=== PATIENT | female | born 1975 | race Caucasian/White ===

== ENCOUNTER 2019-03-05 20:58 | Emergency (ER) | payer MEDICARE ==
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
[2019-03-05] MEDS ORDERED: OLAN20TA18 PO (21:17)
[2019-03-05] MEDS ORDERED: TOPI200T82 PO (21:17)
[2019-03-05] MEDS ORDERED: SERT-173 PO (21:17)
[2019-03-05] MEDS ORDERED: RIVA20TA PO (21:17)
[2019-03-05] MEDS ORDERED: BUSP15TA69 PO (21:17)
[2019-03-05] MEDS ORDERED: TRAZ100T31 PO (21:17)
[2019-03-05] MEDS ORDERED: GABA-549 PO (21:17)
[2019-03-05] MEDS ORDERED: LITH300T18 PO (21:17)
[2019-03-05] MEDS ORDERED: GABAPENTIN 100 MG CAP PO ONE (21:40)
[2019-03-05] MEDS ORDERED: LITHIUM CARBONATE 300 MG CAP PO ONE (21:40)
[2019-03-05] MEDS ORDERED: busPIRone HCL 5 MG TAB PO ONE (21:45)
[2019-03-05] MEDS ORDERED: traZODone HCL 50 MG TAB ONE (21:59)
[2019-03-05] MEDS ORDERED: OLANZapine 5 MG TAB ONE (22:00)
[2019-03-05 22:07] LABS: PLATELET COUNT, AUTOMATED 207 K/uL (150-450)
[2019-03-05 22:30] VITALS: BP 155/70
[2019-03-05] MEDS ORDERED: LOPERAMIDE HCL 2 MG CAP PO PRN (22:55)
[2019-03-06] MEDS ORDERED: OLANZapine 5 MG TAB PO SCH (21:00)
[2019-03-06] MEDS ORDERED: traZODone HCL 50 MG TAB PO SCH (21:00)
== END 2019-03-05 23:20 ==
LOC: ER 21:25
DX: R45.851 Suicidal ideations (principal)
CPT/HCPCS: 36415; 80178; 80305; 81001; 81025; 83735; 84443; 85025; 99284; A9270; G0480; 80320; 80329; 82040; 82247; 82310; 82374; 82435; 82565; 82947; 84075; 84132; 84155; 84295; 84450; 84460; 84520

== ENCOUNTER 2019-03-05 22:48 | Inpatient (IN) | payer MEDICARE ==
[~2019-03-05] VITALS: Ht 172.7 cm; Wt 108.9 kg
[~2019-03-05 22:48] MED LIST: BUSP15TA69 PO; GABA-549 PO; LITH300T18 PO; OLAN20TA18 PO; RIVA20TA PO; SERT-173 PO; TOPI200T82 PO; TRAZ100T31 PO
[2019-03-05] MEDS ORDERED: LOPERAMIDE HCL 2 MG CAP PO PRN (23:20)
[2019-03-05] MEDS ORDERED: MAG HYD/AL HYD/SIMETH 30ML UDC PO PRN (23:20)
[2019-03-06 01:20] VITALS: BP 137/87
[2019-03-06] MEDS: MULTIVITAMINS TAB PO SCH (08:08)
[2019-03-06] MEDS ORDERED: traZODone HCL 50 MG TAB PO PRN (11:45)
[2019-03-06] MEDS: SERTRALINE HCL 50 MG TAB PO SCH (12:09)
[2019-03-06] MEDS: TOPIRAMATE 25 MG TAB PO SCH (12:10)
[2019-03-06] MEDS: LITHIUM CARBONATE 300 MG CAP PO SCH ×2 (14:01→21:36)
[2019-03-06] MEDS: GABAPENTIN 100 MG CAP PO SCH ×2 (14:01→21:36)
[2019-03-06] MEDS: busPIRone HCL 5 MG TAB PO SCH ×2 (14:01→21:36)
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
[2019-03-06] MEDS ORDERED: LORazepam 1 MG TAB PO ONE (18:30)
[2019-03-06] MEDS ORDERED: OLANZapine 5 MG TAB PO SCH (21:00)
[2019-03-06] MEDS: ACETAMINOPHEN 325 MG TAB PO PRN (21:36)
[2019-03-07 05:57] VITALS: BP 119/95
[2019-03-07] MEDS: busPIRone HCL 5 MG TAB PO SCH ×2 (08:16→14:17)
[2019-03-07] MEDS: GABAPENTIN 100 MG CAP PO SCH ×2 (08:16→14:17)
[2019-03-07] MEDS: LITHIUM CARBONATE 300 MG CAP PO SCH ×2 (08:16→14:17)
[2019-03-07] MEDS: SERTRALINE HCL 50 MG TAB PO SCH (08:17)
[2019-03-07] MEDS: MULTIVITAMINS TAB PO SCH (08:17)
[2019-03-07] MEDS: TOPIRAMATE 25 MG TAB PO SCH (08:17)
[2019-03-07] MEDS ORDERED: RIVAROXABAN 10 MG TAB PO SCH (12:00)
[2019-03-07] MEDS: ACETAMINOPHEN 325 MG TAB PO PRN (12:10)
[2019-03-07] MEDS ORDERED: MULT-1379 PO (13:30)
[2019-03-07] MEDS ORDERED: TOPI50TA92 PO (13:30)
[2019-03-07] MEDS ORDERED: OLAN10TA21 PO (13:32)
[2019-03-07] MEDS ORDERED: OLAN20TA6 PO (13:36)
[2019-03-07] MEDS ORDERED: SERT-181 PO (13:40)
--- NOTE | 2019-03-08 21:38 | SCHAAF DISCHARGE ---
DATE OF ADMISSION: March 05, 2019 DATE OF DISCHARGE: March 07, 2019 ATTENDING PHYSICIAN Barron Thomas MD Patient was seen approximately 1000 hours on the a.m. of 07 March 2019 for note concerning this dictation. FINAL DIAGNOSES 1. Borderline personality disorder. 2. Bipolar II disorder, recent depressed. 3. History of posttraumatic stress disorder. 4. Limited stress-coping mechanism. 5. Supportive relationship overall with her mother. REASON FOR ADMISSION This is a 43-year-old female who moved to [facility] with her mother in the last few weeks here to [place], [place], to set up permanent residence. Please see H and P for full details. Patient being overwhelmed with the move in general, financial stressors, and getting things in order as far medication management in [facility]. Patient is noted prior to admission to have been setting up treatment at [facility], but was unable to get in to see a provider. Brief suicidal ideation ensued, patient not having any intention. She has had a long history of hospitalizations associated with what is presumably mostly due to borderline personality disorder. Patient will be in need of therapists as well. Medications were largely continued on the unit with the exception of Zyprexa, which was lowered somewhat at the patient's request. Topamax was restarted at a low dose at 50 mg q.a.m. This could offset some of the weight gain from Zyprexa and also lead to a more effective mood stability agent in the exterminator termite for this patient with borderline personality disorder. Patient overall making no parasuicidal gestures or behaviors on the unit, interacting well throughout her stay. Patient having some brief suicidal thoughts, even at time of discharge. However, patient had contracted for safety and will return to the ER or call crisis line and will set up effective outpatient management to limit hospital frequencies of admission. PHYSICAL EXAMINATION Please see emergency room note. Notable for heavyset 43-year-old female. Appears stated age. Vital signs at the time of admission: Temperature 99.1, pulse 73, respiratory rate 18, blood pressure 149/76, pulse oximetry 95% on room air. At the time of discharge from [facility], vital signs showed temperature 98.6, pulse 76, respiratory rate 15, blood pressure 119/95, pulse oximetry 95% on room air. LABORATORY DATA Upon admission, CBC was unremarkable. CMP unremarkable as well. TSH did show mild elevation of 5.38. This could be related to lithium use; however, will require further investigation outpatient status. Urinalysis unremarkable. screen negative. Toxicology screen negative. Notably, lithium level at 0.9. MENTAL STATUS EXAMINATION AT TIME OF DISCHARGE GENERAL APPEARANCE, BEHAVIOR, AND ATTITUDE: This is a polite, cooperative, 43-year-old female. Some psychomotor retardation present. Patient making good eye contact. No periods of tearfulness. SPEECH: Largely within normal limits. Regular rate, rhythm, volume, and tone. MOOD: Described as improved. AFFECT: Full briefly at times and mood congruent. THOUGHT PROCESSES: Goal directed, logical, patient deciding she should exit the hospital. No loose associations or flight of ideas. THOUGHT CONTENT: Free of auditory or visual hallucinations, ideas of reference, thought broadcasting, delusions, obsessions, compulsions, and patient denying any suicidal intent and adamantly denying homicidal ideation. SENSORIUM: Clear. COGNITION: Alert and oriented to person, place, time, and situation. MEMORY: Immediate, recent, and remote estimated intact. INTELLIGENCE: Average based on interview. INSIGHT AND JUDGMENT: Limited stress coping mechanisms are present; however, patient has the support of her mother in the outpatient community after recent move to [place]. RESULTS OF TESTING Imaging: None. Laboratory data: See above. CONSULTATIONS None. TREATMENT Patient received medications, participated in individual and group therapy. HOSPITAL COURSE Patient was polite and cooperative throughout her stay, indicated a desire to get back into DBT therapy as well as set up proper medication management and therapy management in general in the [facility]. Patient showing no parasuicidal behaviors while on the unit. Medications were continued. Zyprexa dose was lowered due to history of weight gain and lethargy. CONDITION OF PATIENT ON DISCHARGE Stable. Considered a minimal risk to herself or others, appropriate for outpatient care. DISPOSITION Patient discharged to home in the care of her mother. She would follow up with [facility] for DBT therapy as well as medication management. It appears that the patient's primary diagnosis would be borderline personality disorder, and she remains on a considerable amount of varying psychotropic medications. Close observation on an outpatient basis. It would be recommended that patient see if she can decrease some of these medications overall. DISCHARGE MEDICATIONS 1. Buspirone 15 mg three times a day. 2. Gabapentin 100 mg three times a day. 3. [place] carbonate 300 mg three times a day. 4. Zyprexa 10 mg at bedtime. 5. Xarelto 20 mg daily. 6. Zoloft 200 mg q.a.m. 7. Topamax 50 mg q.a.m. 8. Trazodone 200 mg at bedtime. PLAN Crisis line was given should symptoms return. Risks, benefits, and alternatives of the above discharge plan were discussed. Informed consent was given to proceed with the above discharge plan by this competent patient and patient's mother present at time of discharge. ZHAO
== END 2019-03-07 16:20 | disposition home or self-care (01) | DRG 882 ==
LOC: BHS 22:48
PROVIDERS: ADMIT Psychiatry & Neurology Psychiatry; ATTEND Psychiatry & Neurology Psychiatry
DX: F43.23 Adjustment disorder with mixed anxiety and depressed mood (principal); G40.909 Epilepsy, unspecified, not intractable, without status epilepticus; F43.10 Post-traumatic stress disorder, unspecified; F60.3 Borderline personality disorder; F41.9 Anxiety disorder, unspecified; M79.7 Fibromyalgia; M19.90 Unspecified osteoarthritis, unspecified site; F31.81 Bipolar II disorder; Z79.899 Other long term (current) drug therapy

== ENCOUNTER → 2019-03-27 | Outpatient (CLI) | payer MEDICARE ==
[~2019-03-27] MED LIST changes: +MULT-1379 PO; +OLAN10TA21 PO; +OLAN20TA6 PO; +SERT-181 PO; +TOPI50TA92 PO
[2019-03-27 14:37] LABS: PLATELET COUNT, AUTOMATED 259 K/uL (150-450)
--- NOTE | 2019-03-27 14:46 | RADIOLOGY IMAGING REPORT ---
FACILITY: [facility] PATIENT NAME: Leann Acosta : 1975 MR: [id number] V: [id number] EXAM DATE: ORDERING PHYSICIAN: CHYNA CAZARES TECHNOLOGIST: Location: [facility] Patient: Leann Acosta : 1975 Visit/Account:[id number] Date of Sevice: 03/27/2019 Exam: SACRUM & COCCYX Indication: Fall in July 2018 with progressive pain, Comparison: None available Findings: No fracture, dislocation or acute osseous abnormality of the sacrum and coccyx is identifie d. No areas of bony sclerosis or abnormal angulation are seen. Sacroiliac joints are within normal limits. IMPRESSION: 1. Negative exam of the sacrum and coccyx Report Dictated By: Gurmeet Snow at 03/27/2019 2:37 PM Report E-Signed By: Gurmeet Snow at 03/27/2019 2:38 PM WSN:[id number]
[2019-03-27 15:15] LABS: LDL CHOLESTEROL 150 mg/dl
== END ==
LOC: RAD 13:12
PROVIDERS: ATTEND Nurse Practitioner Family
DX: S39.92XS Unspecified injury of lower back, sequela (principal); R73.01 Impaired fasting glucose; K52.9 Noninfective gastroenteritis and colitis, unspecified; R53.83 Other fatigue; R53.81 Other malaise; E87.8 Other disorders of electrolyte and fluid balance, not elsewhere classified; D50.9 Iron deficiency anemia, unspecified; E78.00 Pure hypercholesterolemia, unspecified; E53.8 Deficiency of other specified B group vitamins; E55.9 Vitamin D deficiency, unspecified
CPT/HCPCS: 36415; 72220; 82040; 82247; 82306; 82310; 82374; 82435; 82465; 82565; 82607; 82728; 82947; 83036; 83718; 84075; 84132; 84155; 84295; 84443; 84450; 84460; 84478; 84520; 85025

== ENCOUNTER 2019-04-11 22:44 | Emergency (ER) | payer MEDICARE ==
--- NOTE | 2019-04-11 22:46 | ER Report ---
History and Physical Time Seen By MD: 22:43 HPI/ROS CHIEF COMPLAINT: Bladder pain, right 4th toe injury HISTORY OF PRESENT ILLNESS: 43-year-old female staying in the hospital with her mother who is at inpatient. She was sleeping in a chair that reclines when she went to get up. She jammed her right 4th toe and a cracked invented in an obscure direction causing it to be purple bruise. She is on Xarelto. Patient also notes bladder pain. She describes a foul smell to her orders. She denies burning with urination, or hematuria. Patient notes a low-grade fever a couple days ago. Patient is status post partial hysterectomy. REVIEW OF SYSTEMS: Respiratory: No cough, no dyspnea. Cardiovascular: No chest pain, no palpitations. Gastrointestinal: As above Musculoskeletal: No back pain. Allergies: Coded Allergies: Tetracyclines (Verified Allergy, Intermediate, "RASH", 04/11/19) gatifloxacin (Verified Allergy, Intermediate, SEIZURE, 04/11/19) hydromorphone (Verified Adverse Reaction, Intermediate, "CHEST PAINS", 04/11/19) lamotrigine (Verified Adverse Reaction, Intermediate, "SPOTS ON LEGS", 04/11/19) Home Meds Reported Medications Lurasidone (LATUDA) 80 Mg Tab, 80 MG PO QDAY, TAB 04/11/19 Sertraline Hcl (SERTRALINE HCL) 100 Mg Tablet, 200 TAB PO QDAY, TAB 03/07/19 Topiramate (TOPIRAMATE) 50 Mg Tablet, 50 MG PO QAM 03/07/19 Multivits,Th W-Fe,Other Min (THERA-M) 1 Each Tablet, 1 EACH PO QDAY 03/07/19 [place] Carbonate (LITHIUM CARBONATE) 300 Mg Tablet, 300 MG PO TID 03/05/19 Trazodone Hcl (TRAZODONE HCL) 100 Mg Tablet, 200 MG PO QHS PRN for INSOMNIA, TAB TAKE 200 MG ABOUT AN HOUR BEFORE YOU PLAN TO GO TO SLEEP NEEDED FOR INSOMNIA. 03/05/19 Rivaroxaban 20 Mg (XARELTO 20 MG) 20 Mg Tablet, 20 MG PO QDAY, TAB 03/05/19 Discontinued Reported Medications Olanzapine (OLANZAPINE) 20 Mg Tablet, 10 MG PO QHS 03/07/19 Gabapentin (GABAPENTIN) 300 Mg Capsule, 100 MG PO TID, CAPSULE 03/05/19 Buspirone Hcl (BUSPIRONE HCL) 15 Mg Tablet, 15 MG PO TID, #10 TAB 03/05/19 Hx Smoking: Yes Smoking Status: Former Smoker Exposure to Second Hand Smoke?: No Hx Substance Use Disorder: No Hx Alcohol Use: Yes Constitutional Vital Sign - Last 24 Hours 04/11/19 04/11/19 04/11/19 04/11/19 22:47 22:59 23:00 23:14 Temp 97.6 Pulse 62 61 61 Resp 14 B/P (MAP) 141/67 128/65 (86) Pulse Ox 96 94 94 O2 Delivery Room Air 04/11/19 04/11/19 23:15 23:29 Pulse 61 B/P (MAP) 119/69 (86) Pulse Ox 94 Physical Exam General Appearance: The patient is alert, has no immediate need for airway protection and no current signs of toxicity. Vital signs stable, afebrile, pulse ox normal HEENT: Pupils equal and round no injection. Oropharynx without redness or exudate Respiratory: Chest is non tender, lungs are clear to auscultation. Cardiac: regular rate and rhythm Gastrointestinal: Abdomen is soft and non tender, no masses, bowel sounds normal. Mild suprapubic tenderness Musculoskeletal: Neck: Neck is supple and non tender. Extremities have full range of motion and are non tender. Skin: No rashes or lesions. DIFFERENTIAL DIAGNOSIS: After history and physical exam differential diagnosis was considered for abdominal pain including but not limited to appendicitis, cholecystitis, gastritis and urinary tract infection. Toe injury differential Sprain, strain, fracture, dislocation, contusion Medical Decision Making Data Points Laboratory Urinalysis Test 04/11/19 22:50 Urine Color Yellow Urine Clarity Clear Urine pH 5.0 pH (4.8-9.5) Urine Specific [place] 1.014 Urine Protein Negative mg/dL (NEGATIVE) Urine Glucose (UA) Negative mg/dL (NEGATIVE) Urine Ketones Negative mg/dL (NEGATIVE) Urine Blood Negative (NEGATIVE) Urine Nitrite Negative (NEGATIVE) Urine Bilirubin Negative (NEGATIVE) Urine Urobilinogen Negative mg/dL (0.2-1.9) Urine Leukocyte Esterase Negative (NEGATIVE) Urine RBC 6 /HPF (0-2/HPF) Urine WBC 2 /HPF (0-5/HPF) Urine Squamous Epithelial Cells Many /LPF (</=FEW) Urine Bacteria Few /HPF (NONE-FEW) Urine Mucus Few /HPF (NONE-FEW) EKG/Imaging Imaging X-ray: Right foot, 3 views was obtained. I viewed the images myself on the PACS system. My interpretation of the images is: No fracture no dislocation or malalignment. The radiologist interpretation had no clinically significant variation from this interpretation. ED Course/Re-evaluation ED Course Patient was admitted to an examination room. H&P was done. The differential diagnoses was considered. On clinical examination. Patient has a bruised right 4th toe. It's neurovascularly intact. Diagnostic x-rays are performed which were unremarkable for obvious fracture. Patient advised treatment for contusion. She's on Xarelto is unable to take NSAIDs. She is advised Tylenol for pain. Patient was complaining of bladder pain and foul-smelling urine. A urinalysis is unremarkable. There is a trace hematuria, likely from her being on Xarelto. No evidence of infection. No leukocyte esterase. Patient advised to follow-up with primary care. She states she has an appointment tomorrow. Decision to Disposition Date: Apr 11, 2019 Decision to Disposition Time: 23:19 Depart Departure Latest Vital Signs Vital Signs Date Time Temp Pulse Resp B/P (MAP) Pulse Ox O2 Delivery O2 Flow Rate FiO2 04/11/19 23:29 61 94 04/11/19 23:15 119/69 (86) 04/11/19 22:47 97.6 14 Room Air Impression: Primary Impression: Lower abdominal pain Additional Impression: Contusion of toe, right Condition: Improved Disposition: HOME OR SELF-CARE Patient Instructions: Abdominal Pain (ED), Contusion in Adults (ED) Additional Instructions: Use Tylenol for pain Follow-up with your primary care doctor as planned tomorrow. Problem Qualifiers Additional Impression: Contusion of toe, right Encounter type: initial encounter Toe: lesser toe Damage to nail status: without damage Qualified Codes: S90.121A - Contusion of right lesser toe(s) without damage to nail, initial encounter WALT FULLER DO Apr 11, 2019 22:46
[2019-04-11] MEDS ORDERED: LUR80PT PO (22:54)
[2019-04-11 23:15] VITALS: BP 119/69
--- NOTE | 2019-04-11 23:46 | RADIOLOGY IMAGING REPORT ---
FACILITY: [facility] PATIENT NAME: Leann Acosta : 1975 MR: [id number] V: [id number] EXAM DATE: ORDERING PHYSICIAN: WALT FULLER TECHNOLOGIST: Location: [facility] [place] Patient: Leann Acosta : 1975 Visit/Account:[id number] Date of Sevice: 04/11/2019 INDICATION: Right 4th toe bruising injury. EXAM DATE: 04/11/2019 10:56 PM COMPARISON: None. FINDINGS: 3 views right foot. Mineralization is normal. No acute alignment abnormality or fracture. Small os p eroneum. Small calcaneal spur. Soft tissues are unremarkable. IMPRESSION: No acute osseous abnormality of the right foot. Report Dictated By: Richard Harris MD at 04/11/2019 11:38 PM Report E-Signed By: Richard Harris MD at 04/11/2019 11:39 PM WSN:[id number]
== END 2019-04-11 23:31 | disposition home or self-care (01) ==
LOC: ER 23:05
DX: R10.30 Lower abdominal pain, unspecified (principal); S90.121A Contusion of right lesser toe(s) without damage to nail, initial encounter
CPT/HCPCS: 81001; 99283

== ENCOUNTER → 2019-04-12 | Outpatient (CLI) | payer MEDICARE ==
[~2019-04-12] MED LIST changes: +IOPAMIDOL 76% 100 ML INFUS BTL 100 ML ONE; +LUR80PT PO
--- NOTE | 2019-04-12 19:04 | RADIOLOGY IMAGING REPORT ---
FACILITY: [facility] PATIENT NAME: Leann Acosta : 1975 MR: [id number] V: [id number] EXAM DATE: ORDERING PHYSICIAN: CHYNA CAZARES TECHNOLOGIST: Location: [facility] [place] Patient: Leann Acosta : 1975 Visit/Account:[id number] Date of Sevice: 04/12/2019 EXAMINATION: CT abdomen and pelvis with contrast COMPARISON: None. HISTORY: Right lower quadrant pain and diarrhea for one year. PROCEDURE: Multiplanar contrast enhanced CT of the abdomen and pelvis with 75 mL intravenous Isovue 3 70. One of the following dose optimization techniques was utilized in the performance of this exam: A utomated exposure control; adjustment of the mA and/or kV according to the patient's size; or use of an iterative reconstruction technique. Specific details can be referenced in the facility's radiolo gy CT exam operational policy. FINDINGS: Visualized thorax: No acute findings. Liver: Negative. Gallbladder and biliary system: Negative Spleen: Negative. Pancreas: Negative. Adrenal glands: Negative. Kidneys and bladder: Negative. Vessels: Negative. Bowel and mesentery: Stomach, small bowel, and appendix are unremarkable. Small amount of stool in co anibal. No definite colonic diverticula are identified. No inflammation. Pelvic organs: Hysterectomy. No adnexal mass. Lymph nodes: No adenopathy. Free air/free fluid: None. Musculoskeletal: Negative. IMPRESSION: No findings of active disease in the abdomen or pelvis. Report Dictated By: Lucio Doty MD at 04/12/2019 6:48 PM Report E-Signed By: Lucio Doty MD at 04/12/2019 6:56 PM WSN:[id number]
== END ==
LOC: CT 17:21
PROVIDERS: ATTEND Nurse Practitioner Family
DX: R10.814 Left lower quadrant abdominal tenderness (principal)
CPT/HCPCS: 74177; Q9967

== ENCOUNTER 2019-05-03 16:06 | Inpatient (IN) | payer MEDICARE ==
[~2019-05-03] VITALS: Ht 175.3 cm; Wt 122.0 kg
[~2019-05-03 16:06] MED LIST changes: -AMOX-559 PO; -ELUX100T PO
[2019-05-03 16:30] VITALS: BP 134/82
[2019-05-03] MEDS ORDERED: ACETAMINOPHEN 325 MG TAB PO ONE (17:00)
[2019-05-03] MEDS ORDERED: ELUX100T PO (18:04)
[2019-05-03] MEDS: LURASIDONE 40 MG TAB PO SCH (20:27)
[2019-05-03] MEDS: TOPIRAMATE 100 MG TAB PO SCH (20:27)
[2019-05-03] MEDS: traZODone HCL 50 MG TAB PO SCH (20:27)
[2019-05-03] MEDS: LITHIUM CARBONATE 450 MG TABCR PO SCH (20:28)
[2019-05-04 04:06] VITALS: BP 104/46
[2019-05-04] MEDS: LITHIUM CARBONATE 450 MG TABCR PO SCH ×2 (09:01→20:38)
[2019-05-04] MEDS: ACETAMINOPHEN 325 MG TAB PO PRN (09:01)
[2019-05-04] MEDS: RIVAROXABAN 10 MG TAB PO SCH (09:01)
[2019-05-04] MEDS: MULTIVITAMINS TAB PO SCH (09:01)
[2019-05-04] MEDS: TOPIRAMATE 100 MG TAB PO SCH ×2 (09:01→20:38)
[2019-05-04] MEDS ORDERED: PATIENT'S OWN MED PO SCH (10:05)
[2019-05-04] MEDS: SERTRALINE HCL 50 MG TAB PO SCH (11:01)
[2019-05-04] MEDS: GABAPENTIN 300 MG CAP PO SCH ×2 (12:15→20:38)
[2019-05-04 12:30] VITALS: BP 108/58
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
[2019-05-04] MEDS: traZODone HCL 50 MG TAB PO SCH (20:38)
[2019-05-04] MEDS: LURASIDONE 40 MG TAB PO SCH (20:38)
[2019-05-04 22:25] VITALS: BP 113/60
[2019-05-05] MEDS: ACETAMINOPHEN 325 MG TAB PO PRN ×3 (05:05→20:16)
[2019-05-05 05:22] VITALS: BP 122/84
[2019-05-05] MEDS: MAG HYD/AL HYD/SIMETH 30ML UDC PO PRN (08:37)
[2019-05-05] MEDS: LITHIUM CARBONATE 450 MG TABCR PO SCH ×2 (08:37→21:41)
[2019-05-05] MEDS: RIVAROXABAN 10 MG TAB PO SCH (08:37)
[2019-05-05] MEDS: GABAPENTIN 300 MG CAP PO SCH ×2 (08:37→21:41)
[2019-05-05] MEDS: SERTRALINE HCL 50 MG TAB PO SCH (08:37)
[2019-05-05] MEDS: MULTIVITAMINS TAB PO SCH (08:37)
[2019-05-05] MEDS: ELUXADOLINE 100 MG PO SCH ×2 (08:37→21:42)
[2019-05-05] MEDS: TOPIRAMATE 100 MG TAB PO SCH ×2 (08:37→21:41)
[2019-05-05] MEDS ORDERED: SERTRALINE HCL 50 MG TAB PO ONE (12:50)
--- NOTE | 2019-05-05 13:54 | BHS Progress Note ---
[facility] - Subjective Progress Notes Subjective Pt seen in conference room with staff. Pt doing a little bit better today. Still overall depressed mood, and still with some suicidal thoughts, but these "suicidal thoughts are not as alive in my head." Rating depression at 3/10 and anxiety at 8/10. Tolerating restart of zoloft well without side effects, also tolerated restart of gabapentin well. Today we will increase zoloft to 100 mg, and go to 150 mg tomorrow. Discussed her outpatient care concerns and will make referrals and follow up appointments tomorrow, she would like to consolidate her care to the [facility] where she can get psychiatric medication management as well as medical care. He mother will be present for treatment team tomorrow am-- tentative discharge tomorrow if SI resolves and pt continues to show forward progress. Suicidal Ideation: Ongoing Homicidal Ideation: None [facility] - Objective Physical Exam Vital Signs Vital Signs 05/05/19 05:22 Temp 97.9 Pulse 95 Resp 15 B/P (MAP) 122/84 (97) Pulse Ox 96 O2 Delivery Room Air Muscle Strength and Tone: WNL Gait and Station: Steady BH Medications Reviewed: Side Effects, Benefits of Medication, Risks Allergies Reviewed: Yes Mental Status Exam General Appearance: Casual, Cooperative, Polite, Good Interaction Speech: Clear, Spontaneous, Normal Rate, Normal Rhythm, Normal Volume, Normal Tone Mood: Dysthmic/Depressed Affect: Calm, Sad, Anxious Thought Process: Organized, Logical, Goal Directed Thought Content: Suicidal Ideation; No Homicidal Ideation, No Delusions, No Auditory Halllucinations, No Visual Hallucinations, No Thought Broadcasting, No Ideas of Reference, No Obsessions, No Compulsions, No Other Sensorium: Clear Cognition: Alert & Oriented-Person, Alert & Oriented-Place, Alert & Oriented- Time, Lcpyx-Hnxopzes-Fqkaxkhzg Memory: Immediate, Recent, Remote Intelligence: Average Insight Judgment: Fair [facility] Assessment and Plan [id number] Encounter Date: May 05, 2019 [id number] Encounter Time: 10:00 [facility] Plan: Admit to Unit, Necessary Precautions, Individual/Group Therapy, Admin/Titrate Meds, Educate Patient Tobacco Medications: Not Appropriate Condition Multpiple Antipsychotics Used: No Problems: (1) Bipolar 2 disorder (2) Cluster B personality disorder (3) PTSD (post-traumatic stress disorder) ILIR CHAO MD May 05, 2019 13:54
[2019-05-05] MEDS: traZODone HCL 50 MG TAB PO SCH (21:41)
[2019-05-05] MEDS: LURASIDONE 40 MG TAB PO SCH (21:41)
[2019-05-06] MEDS: ACETAMINOPHEN 325 MG TAB PO PRN (03:14)
[2019-05-06 06:06] VITALS: BP 106/75
[2019-05-06] MEDS: MULTIVITAMINS TAB PO SCH (08:15)
[2019-05-06] MEDS: LITHIUM CARBONATE 450 MG TABCR PO SCH (08:15)
[2019-05-06] MEDS: GABAPENTIN 300 MG CAP PO SCH (08:15)
[2019-05-06] MEDS: TOPIRAMATE 100 MG TAB PO SCH (08:15)
[2019-05-06] MEDS: RIVAROXABAN 10 MG TAB PO SCH (08:16)
[2019-05-06] MEDS: ELUXADOLINE 100 MG PO SCH (08:16)
[2019-05-06] MEDS: MAG HYD/AL HYD/SIMETH 30ML UDC PO PRN ×2 (08:22→12:38)
[2019-05-06] MEDS ORDERED: SERTRALINE HCL 50 MG TAB PO SCH (09:00)
[2019-05-06] MEDS ORDERED: SALINE 0.65% NAS SPR 44 ML BTL PRN (09:20)
[2019-05-06] MEDS ORDERED: AMOX/CLAV 875 MG TAB PO SCH (09:20)
[2019-05-06] MEDS ORDERED: GABA-549 PO (09:42)
[2019-05-06] MEDS ORDERED: SERT-173 PO (09:43)
[2019-05-06] MEDS ORDERED: AMOX-559 PO (09:46)
--- NOTE | 2019-05-06 14:11 | BHS Discharge Summary ---
[facility] Discharge Summary Hxpm-[id number] Encounter Date: May 06, 2019 Elcx-[id number] Encounter Time: 10:00 Reason-Hosp/Final Diag (DSM-V): (1) Bipolar 2 disorder Hospital Course & Plan: CHIEF COMPLAINT "I was having suicidal ideations." HISTORY OF PRESENT ILLNESS This is the second [facility] psychiatric admission and one of approximately 30 lifetime psychiatric admissions for this 43-year-old woman who presents with increasing depression and suicidal ideation and who is a voluntary patient. The patient says that she has a history of borderline personality disorder, bipolar II disorder, and PTSD. She moved to [place] from [place] approximately five months ago. Her most recent psychiatric admission was here on [facility] in February of this year, at that time for depression with suicidal ideation. After that admission, she started seeing a new psychiatric provider, and some medication changes have ensued over the past two months in an effort to simplify her medication regimen. In February, gabapentin, BuSpar, and Zyprexa were all discont inued. Latuda was started at that time. She began to notice feeling more mood instability with agitation, depression, more tearful episodes, and more anxiety. Then two weeks ago, Zoloft 200 mg was discontinued, and Effexor was started. For the past two weeks, she has had the onset of suicidal ideation with thoughts of taking an overdose of pills. She has also noticed some flu-like symptoms including muscle aches, feeling feverish, and feeling very tired since the abrupt discontinuation of the Zoloft. Yesterday, she saw her outpatient therapist and was describing her suicidal thoughts, and her therapist recommended that she be evaluated in the Emergency Room. She was then admitted voluntarily to [facility] due to suicidal ideation. PAST MENTAL HEALTH HISTORY The patient was first diagnosed with depression at the age of 16. She has had approximately 30 inpatient psychiatric admissions over the years, most recently two months ago here on [facility]. Her first hospitalizations were in [place], and then most of her hospitalizations were between the ages of 34 and 40 when she was living in [place]. She had a couple of hospitalizations in [place], [place], over the past three years. She has been treated as an outpatient, most recently at [facility] where she sees Prosper for therapy. She has also been seeing Dionne Gupta for medication management. The patient has had nine suicide attempts, all by pill overdose, and the last one was two years ago in April when she did require four days of ICU care. She has a past history of cutting to relieve anxiety, but has not done so in over two years. HOSPITAL COURSE Pt was admitted to [facility] and maintained on suicide precautions. She was active in her treatment and attended all groups and mileau activities. We discussed her medications in family meeting with her mother present, and they both agreed that with recent med changes pt was getting worse, not better. Pt wanted to go back on zoloft and gabapentin. There was an element of SSRI withdrawal as well as new changes being less effective. Zoloft was restarted and titrated to 200 mg q am, gabapentin was restarted at 300 mg BID, and effexor was DC'd. She was also treated for sinusitis with augmentin for a 10 day course to be completed after discharge. Pt's mood improved bit by bit, with resolution of SI. We helped her arrange outpatient follow up to return to [facility] for therapy with Prosper. She requested referral to [facility] so that she could have her medical and psychiatric care in one location. By day of discharge she was improved, with brighter affect, and resolution of SI. (2) PTSD (post-traumatic stress disorder) (3) Cluster B personality disorder Physical Exam Latest Vital Signs Vital Signs 05/05/19 05/06/19 05:22 06:06 Temp 98.1 Pulse 69 Resp 15 B/P (MAP) 106/75 (85) Pulse Ox 96 O2 Delivery Room Air Mental Status Exam General Appearance: Casual, Well Groomed, Good Eye Contact, Cooperative, Polite, Good Interaction Speech: Clear, Spontaneous, Normal Rate, Normal Rhythm, Normal Volume, Normal Tone Mood: Euthymic Affect: Full and Appropriate, Calm Thought Process: Organized, Logical, Goal Directed Thought Content: No Suicidal Ideation, No Homicidal Ideation, No Delusions, No Auditory Halllucinations, No Visual Hallucinations, No Thought Broadcasting, No Ideas of Reference, No Obsessions, No Compulsions, No Other Sensorium: Clear Cognition: Alert & Oriented-Person, Alert & Oriented-Place, Alert & Oriented- Time, Mflaj-Sopnzlap-Pfllfxqzg Memory: Immediate, Recent, Remote Intelligence: Average Insight Judgment: Fair Departure Item Value Date Time [place] Level 1.3 mmol/L H 05/04/19 0549 White Blood Count 9.9 k/uL 8/16/19 1432 Red Blood Count 5.05 M/uL 05/03/19 1432 Hemoglobin 15.5 g/dL 05/03/19 1432 Hematocrit 45.2 % 05/03/19 1432 Mean Corpuscular Volume 89.4 fL 05/03/19 1432 Mean Corpuscular Hemoglobin 30.7 pg 05/03/19 1432 Mean Corpuscular Hemoglobin Concent 34.3 g/dL 05/03/19 1432 Red Cell Distribution Width 14.2 % 05/03/19 1432 Platelet Count 218 K/uL 05/03/19 1432 Sodium Level 137 mmol/L 05/03/19 1432 Potassium Level 3.4 mmol/L L 05/03/19 1432 Chloride Level 112 mmol/L H 05/03/19 1432 Carbon Dioxide Level 14 mmol/L *L 05/03/19 1432 Blood Urea Nitrogen 6 mg/dl L 05/03/19 1432 Creatinine 0.90 mg/dl 05/03/19 1432 Glomerular Filtration Rate Calc > 60.0 05/03/19 1432 Random Glucose 96 mg/dl 05/03/19 1432 Calcium Level 9.0 mg/dl 05/03/19 1432 Magnesium Level 2.0 mg/dl 05/03/19 1432 Iron Level 107 ug/dl 05/03/19 1432 Total Iron Binding Capacity 314 ug/dl 05/03/19 1432 Percent Iron Saturation 34.1 % 05/03/19 1432 Total Bilirubin 0.4 mg/dl 05/03/19 1432 Aspartate Amino Transf (AST/SGOT) 21 U/L 05/03/19 1432 Alanine Aminotransferase (ALT/SGPT) 58 U/L H 05/03/19 1432 Alkaline Phosphatase 84 U/L 05/03/19 1432 Total Protein 7.0 g/dl 05/03/19 1432 Albumin 4.0 g/dl 05/03/19 1432 Thyroid Stimulating Hormone (TSH) 2.27 uIU/ml 05/03/19 1432 Urine Color Yellow 05/03/19 1358 Urine Clarity Slightly-cloudy 05/03/19 1358 Urine pH 5.0 pH 05/03/19 1358 Urine Specific [place] 1.027 05/03/19 1358 Urine Protein Negative mg/dL 05/03/19 1358 Urine Glucose (UA) Negative mg/dL 05/03/19 1358 Urine Ketones Negative mg/dL 05/03/19 1358 Urine Blood Negative 05/03/19 1358 Urine Nitrite Negative 05/03/19 1358 Urine Bilirubin Negative 05/03/19 1358 Urine Urobilinogen Negative mg/dL 05/03/19 1358 Urine Leukocyte Esterase Negative 05/03/19 1358 Salicylates Level 73 mg/L 05/03/19 1432 Salicylate Last Dose Date unknown 05/03/19 1432 Urine Opiates Screen Negative 05/03/19 1358 Acetaminophen Level < 10 ug/ml 05/03/19 1432 Urine Barbiturates Screen Negative 05/03/19 1358 Ur Tricyclic Antidepressants Screen Negative 05/03/19 1358 Urine Phencyclidine Screen Negative 05/03/19 1358 Urine Amphetamines Screen Negative 05/03/19 1358 Urine Benzodiazepines Screen Negative 05/03/19 1358 [place] Level 1.3 mmol/L H 05/04/19 0549 Urine Cocaine Screen Negative 05/03/19 1358 Urine Cannabinoids Screen Negative 05/03/19 1358 Serum Alcohol < 10 mg/dl 05/03/19 1432 Condition: Improved Discharge to: Home Discharge Instructions Home Meds Reported Medications Amoxicillin/Pot Clav 875-125 Mg Tab (AUGMENTIN 875-125 TABLET) 1 Each Tablet, 1 TAB PO BID for 10 Days, TAB 05/06/19 Sertraline Hcl (ZOLOFT) 100 Mg Tablet, 2 TAB PO QDAY for 30 Days, TAB 1 Refill 05/06/19 Gabapentin (GABAPENTIN) 300 Mg Capsule, 300 MG PO BID, CAPSULE 05/06/19 Eluxadoline (Viberzi) 100 Mg Tablet, 1 TAB PO BID 05/03/19 Topiramate (TOPAMAX) 200 Mg Tablet, 200 MG PO BID 05/03/19 [place] Carbonate (LITHIUM CARBONATE) 450 Mg Tabcr, 450 MG PO BID 05/03/19 Lurasidone (LATUDA) 80 Mg Tab, 80 MG PO QHS, TAB 04/11/19 Multivits,Th W-Fe,Other Min (THERA-M) 1 Each Tablet, 1 EACH PO QDAY 03/07/19 Trazodone Hcl (TRAZODONE HCL) 100 Mg Tablet, 200 MG PO QHS PRN for INSOMNIA, TAB TAKE 200 MG ABOUT AN HOUR BEFORE YOU PLAN TO GO TO SLEEP NEEDED FOR INSOMNIA. 03/05/19 Rivaroxaban 20 Mg (XARELTO 20 MG) 20 Mg Tablet, 20 MG PO QDAY, TAB 03/05/19 Discontinued Reported Medications Venlafaxine Hcl (EFFEXOR XR) 75 Mg Cap.er.24h, 75 MG PO QDAY 05/03/19 Sertraline Hcl (SERTRALINE HCL) 100 Mg Tablet, 200 TAB PO QDAY, TAB 03/07/19 Topiramate (TOPIRAMATE) 50 Mg Tablet, 50 MG PO QAM 03/07/19 [place] Carbonate (LITHIUM CARBONATE) 300 Mg Tablet, 300 MG PO TID 03/05/19 Multpiple Antipsychotics Used: No Diet: Regular Activity: As Tolerated Special Instructions: Discharge home. Follow-up with outpatient therapy and medication management. Follow-up with Primary Care Provider for medical concerns. Abstain from alcohol and all illicit substances. Call crisis line or return to Emergency Room for any suicidal or homicidal thoughts. ILIR CHAO MD May 06, 2019 14:11
== END 2019-05-06 16:18 | disposition home or self-care (01) | DRG 885 ==
LOC: BHS 16:06
PROVIDERS: ADMIT Psychiatry & Neurology Psychiatry; ATTEND Psychiatry & Neurology Psychiatry
DX: F31.81 Bipolar II disorder (principal); R45.851 Suicidal ideations; F60.3 Borderline personality disorder; F43.12 Post-traumatic stress disorder, chronic; M79.7 Fibromyalgia; J32.9 Chronic sinusitis, unspecified; G40.909 Epilepsy, unspecified, not intractable, without status epilepticus; J45.909 Unspecified asthma, uncomplicated; Z86.718 Personal history of other venous thrombosis and embolism; Z86.711 Personal history of pulmonary embolism; Z88.8 Allergy status to other drugs, medicaments and biological substances; Z91.410 Personal history of adult physical and sexual abuse
CPT/HCPCS: 36415; 80178

== ENCOUNTER → 2019-05-03 | Emergency (ER) | payer MEDICARE ==
[~2019-05-03] MED LIST changes: +AMOX-559 PO; +ELUX100T PO; -IOPAMIDOL 76% 100 ML INFUS BTL 100 ML ONE; +LITC450 PO; +VENL75CA58 PO
--- NOTE | 2019-05-03 14:00 | ER Report ---
History and Physical Time Seen By MD: 13:55 HPI/ROS CHIEF COMPLAINT: Depression, suicidal ideation HISTORY OF PRESENT ILLNESS: Patient is a 43-year-old female here with complaints of depression, suicidal ideation for the past week with family stressors. Patient reports that family members often make fun of her and try to isolate her. Patient does report being on multiple antidepressants and mood modify medications including recent addition of Effexor approximately one week ago, lithium, Topamax, latuda, Xarelto, trazodone. Patient was evaluated today by a therapist who recommended coming into the hospital for further evaluation and care. Patient does report a history of low iron, IBS. REVIEW OF SYSTEMS: Constitutional: No fever, no chills. Eyes: No discharge. ENT: No sore throat. Cardiovascular: No chest pain, no palpitations. Respiratory: No cough, no shortness of breath. Gastrointestinal: No abdominal pain, no vomiting. Genitourinary: No hematuria. Musculoskeletal: No back pain. Skin: No rashes. Neurological: No headache. Psych: + Depression, suicidal ideations Allergies: Coded Allergies: Tetracyclines (Verified Allergy, Intermediate, "RASH", 05/03/19) gatifloxacin (Verified Allergy, Intermediate, SEIZURE, 05/03/19) hydromorphone (Verified Adverse Reaction, Intermediate, "CHEST PAINS", 05/03/19) lamotrigine (Verified Adverse Reaction, Intermediate, "SPOTS ON LEGS", 05/03/19) Home Meds Reported Medications Topiramate (TOPAMAX) 200 Mg Tablet, 200 MG PO BID 05/03/19 [place] Carbonate (LITHIUM CARBONATE) 450 Mg Tabcr, 450 MG PO BID 05/03/19 Venlafaxine Hcl (EFFEXOR XR) 75 Mg Cap.er.24h, 75 MG PO QDAY 05/03/19 Lurasidone (LATUDA) 80 Mg Tab, 80 MG PO QDAY, TAB 04/11/19 Multivits, W-Fe,Other Min (THERA-M) 1 Each Tablet, 1 EACH PO QDAY 03/07/19 Trazodone Hcl (TRAZODONE HCL) 100 Mg Tablet, 200 MG PO QHS PRN for INSOMNIA, TAB TAKE 200 MG ABOUT AN HOUR BEFORE YOU PLAN TO GO TO SLEEP NEEDED FOR INSOMNIA. 03/05/19 Rivaroxaban 20 Mg (XARELTO 20 MG) 20 Mg Tablet, 20 MG PO QDAY, TAB 03/05/19 Discontinued Reported Medications Sertraline Hcl (SERTRALINE HCL) 100 Mg Tablet, 200 TAB PO QDAY, TAB 03/07/19 Topiramate (TOPIRAMATE) 50 Mg Tablet, 50 MG PO QAM 03/07/19 [place] Carbonate (LITHIUM CARBONATE) 300 Mg Tablet, 300 MG PO TID 03/05/19 Hx Smoking: Yes Smoking Status: Former Smoker Exposure to Second Hand Smoke?: No Hx Substance Use Disorder: No Hx Alcohol Use: Yes Constitutional Vital Sign - Last 24 Hours 05/03/19 05/03/19 14:05 15:24 Temp 98.4 Pulse 50 74 Resp 18 18 B/P (MAP) 149/75 129/80 (96) Pulse Ox 95 99 O2 Delivery Room Air Room Air Physical Exam General Appearance: The patient is alert, has no immediate need for airway protection and no signs of toxicity. No acute distress, depressed affect Eyes: Pupils equal and round no pallor or injection. ENT, Mouth: Mucous membranes are moist. Respiratory: There are no retractions, lungs are clear to auscultation. Cardiovascular: Regular rate and rhythm. Gastrointestinal: Abdomen is soft and non tender, no masses, bowel sounds normal. Neurological: No focal neurological deficits, cranial nerves intact Skin: Warm and dry, no rashes. Musculoskeletal: Neck is supple non tender. Extremities are nontender, nonswollen and have full range of motion. Psych: Depressed affect, admits to suicidal ideation, denies homicidal ideation DIFFERENTIAL DIAGNOSIS: After history and physical exam differential diagnosis was considered for depression, new medication side effect, electrolyte abnormality, suicidal ideations, borderline Medical Decision Making Data Points Result Diagram: 05/03/19 1432 05/03/19 1432 Laboratory Hematology Test 05/03/19 14:32 White Blood Count 9.9 k/uL (4.5-11.0) Red Blood Count 5.05 M/uL (4.17-5.56) Hemoglobin 15.5 g/dL (12.0-16.0) Hematocrit 45.2 % (34.0-47.0) Mean Corpuscular Volume 89.4 fL (80.0-96.0) Mean Corpuscular Hemoglobin 30.7 pg (26.0-33.0) Mean Corpuscular Hemoglobin Concent 34.3 g/dL (32.0-36.0) Red Cell Distribution Width 14.2 % (11.5-14.5) Platelet Count 218 K/uL (150-450) Mean Platelet Volume 8.9 fL (7.2-11.1) Neutrophils (%) (Auto) 59.6 % (39.4-72.5) Lymphocytes (%) (Auto) 31.8 % (17.6-49.6) Monocytes (%) (Auto) 4.3 % (4.1-12.4) Eosinophils (%) (Auto) 3.5 % (0.4-6.7) Basophils (%) (Auto) 0.8 % (0.3-1.4) Nucleated RBC Relative Count (auto) 0.2 /100WBC Neutrophils # (Auto) 5.9 K/uL (2.0-7.4) Lymphocytes # (Auto) 3.2 K/uL (1.3-3.6) Monocytes # (Auto) 0.4 K/uL (0.3-1.0) Eosinophils # (Auto) 0.3 K/uL (0.0-0.5) Basophils # (Auto) 0.1 K/uL (0.0-0.1) Nucleated RBC Absolute Count (auto) 0.02 K/uL Chemistry Test 05/03/19 14:32 Sodium Level 137 mmol/L (137-145) Potassium Level 3.4 mmol/L (3.5-5.0) Chloride Level 112 mmol/L (98-107) Carbon Dioxide Level 14 mmol/L (22-31) Blood Urea Nitrogen 6 mg/dl (7-18) Creatinine 0.90 mg/dl (0.52-1.04) Glomerular Filtration Rate Calc > 60.0 Random Glucose 96 mg/dl (75-110) Calcium Level 9.0 mg/dl (8.4-10.2) Magnesium Level 2.0 mg/dl (1.7-2.2) Iron Level 107 ug/dl (37-170) Total Iron Binding Capacity 314 ug/dl (261-497) Percent Iron Saturation 34.1 % Total Bilirubin 0.4 mg/dl (0.2-1.3) Aspartate Amino Transf (AST/SGOT) 21 U/L (0-35) Alanine Aminotransferase (ALT/SGPT) 58 U/L (0-56) Alkaline Phosphatase 84 U/L (0-126) Total Protein 7.0 g/dl (6.3-8.2) Albumin 4.0 g/dl (3.5-5.0) Toxicology Test 05/03/19 13:58 05/03/19 14:32 Urine Opiates Screen Negative Urine Barbiturates Screen Negative Ur Tricyclic Antidepressants Screen Negative Urine Phencyclidine Screen Negative Urine Amphetamines Screen Negative Urine Benzodiazepines Screen Negative Urine Cocaine Screen Negative Urine Cannabinoids Screen Negative Salicylates Level 73 mg/L Salicylate Last Dose Date unknown Acetaminophen Level < 10 ug/ml [place] Level 1.4 mmol/L (0.6-1.2) Serum Alcohol < 10 mg/dl Urinalysis Test 05/03/19 13:58 Urine Color Yellow Urine Clarity Slightly-cloudy Urine pH 5.0 pH (4.8-9.5) Urine Specific [place] 1.027 Urine Protein Negative mg/dL (NEGATIVE) Urine Glucose (UA) Negative mg/dL (NEGATIVE) Urine Ketones Negative mg/dL (NEGATIVE) Urine Blood Negative (NEGATIVE) Urine Nitrite Negative (NEGATIVE) Urine Bilirubin Negative (NEGATIVE) Urine Urobilinogen Negative mg/dL (0.2-1.9) Urine Leukocyte Esterase Negative (NEGATIVE) Urine RBC 2 /HPF (0-2/HPF) Urine WBC 4 /HPF (0-5/HPF) Urine Squamous Epithelial Cells Many /LPF (</=FEW) Urine Bacteria Few /HPF (NONE-FEW) Urine Hyaline Casts Many /LPF (NONE-FEW) Urine Mucus Few /HPF (NONE-FEW) Urine HCG, Qualitative Negative (NEGATIVE) ED Course/Re-evaluation ED Course Patient is a 43-year-old female with a history of depression and prior suicide attempts 9, recent life stressors, recently started on Effexor one week ago. Patient reports that she had attempted to harm herself previously 9 times by taking her medications and overdoses. Denies suicidal attempt today. Patient labs were unremarkable. I discussed the patient with Dr. Nolan with behavioral health services who accepted the patient. Patient was admitted voluntarily. Patient was hemodynamically stable at time of admission. Decision to Disposition Date: May 03, 2019 Decision to Disposition Time: 16:00 Depart Departure Latest Vital Signs Vital Signs Date Time Temp Pulse Resp B/P (MAP) Pulse Ox O2 Delivery O2 Flow Rate FiO2 8/16/19 15:24 74 18 129/80 (96) 99 Room Air 05/03/19 14:05 98.4 Impression: Primary Impression: Suicidal ideation Condition: Improved Disposition: XFER TO [facility] FALLON LEON DO May 03, 2019 14:00
--- NOTE | 2019-05-03 14:48 | EKG ---
FACILITY: [facility] PATIENT NAME: RAD GONZALES : [id number] MR: [id number] V: [id number] EXAM DATE: ORDERING PHYSICIAN: FALLON LEON TECHNOLOGIST: SOPHIA Test Reason : BHS Blood Pressure : / mmHG Vent. Rate : 048 BPM Atrial Rate : 048 BPM P-R Int : 168 ms QRS Dur : 118 ms QT Int : 434 ms P-R-T Axes : 046 -13 051 degrees QTc Int : 387 ms Marked sinus bradycardia Low voltage QRS Abnormal ECG No previous ECGs available Confirmed by Archie Nassar ([id number] on 05/03/2019 9:03:54 PM Referred By: EDWARD Confirmed By:Archie Jaramillo
[2019-05-03 15:07] LABS: PLATELET COUNT, AUTOMATED 218 K/uL (150-450)
[2019-05-03 15:24] VITALS: BP 129/80
== END ==
LOC: ER 14:04
DX: R45.851 Suicidal ideations (principal); R00.1 Bradycardia, unspecified
CPT/HCPCS: 80178; 80305; 81001; 81025; 83540; 83550; 83735; 84443; 85025; 93005; 99284; G0480; 80320; 80329; 82040; 82247; 82310; 82374; 82435; 82565; 82947; 84075; 84132; 84155; 84295; 84450; 84460; 84520